=== PATIENT | male | born 1940 | race Caucasian/White ===

== ENCOUNTER 2017-01-28 23:31 | Emergency (ER) | payer MEDICARE, OTHER ==
--- NOTE | 2017-01-28 23:48 | ED Physician Documentation ---
General Adult - HISTORIAN Historian: patient, spouse - HPI Stated Complaint: "can't take full breath" Chief Complaint: General Adult Onset: days ago Timing: other (intermittent) Further Comments: yes (Pt is a 76 yo male who comes to ER for "difficulty taking a full breath." Pt has not had chest pain or nausea. He feels as though he cannot fill his lungs completely. He does not associate this feeling with exertion. Pt denies hx of COPD. He was a heavy smoker at one time, but has not smoked for 30 yrs. Pt denies anxiety. Pt has SpO2=98% RA.) - ROS CONST: no problems EYES/ENT: none CVS/RESP: shortness of breath ("cannot take a full breath") GI/: problems urinating MS/SKIN/LYMPH: none - PAST HX Past History: other (HLD) Allergies/Adverse Reactions: Allergies Allergy/AdvReac Type Severity Reaction Status Date / Time No Known Drug Allergies Allergy Verified 01/28/17 23:55 Home Medications: Ambulatory Orders Medication Instructions Recorded Hydrochlorothiazide 25 mg PO DAILY #30 tablet 01/29/17 - SOCIAL HX Smoking History: quit greater than 1 year - FAMILY HX Family History: No - REVIEWED ASSESSMENTS Nursing Assessment Reviewed: Yes Vitals Reviewed: Yes Progress - Progress Progress: subjective feeling of not being able to take a full breath, without other sx, suggests anxiety. Pt will consider this and discuss with pcp. Pt's bp elevated in ER, BP 177/96 Pt states his sbp on home monitor is often 160 or greater and that he has been discussing bp med with pcp Rx HCTZ 25 mg po qd f/u pcp in one week - EKG/XRAY/CT EKG: NSR (HR=66; LVH) XRAY: chest (no active disease) ED Results Lab/Radiology - Orders Orders: ED Orders Category Date Time Status Continuous EKG monitoring Q30M Care 01/28/17 23:39 Active Continuous Pulse Oximetry Q30M Care 01/28/17 23:39 Active CHEST 1 VIEW [RAD] Stat Exams 01/28/17 23:39 Ordered CBC/PLATELET/DIFF Routine Lab 01/28/17 23:46 Received CKMB Stat Lab 01/28/17 23:46 Received CMP Routine Lab 01/28/17 23:46 Received CREATINE KINASE Routine Lab 01/28/17 23:46 Received TROPONIN I (cTnI) Stat Lab 01/28/17 23:46 Received Oxygen Daily Oxygen 01/28/17 23:45 Ordered EKG WITH COMPARISON Stat Ther 01/28/17 23:39 Ordered General Adult Physical Exam - PHYSICAL EXAM GENERAL APPEARANCE: mild distress EENT: pharynx normal NECK: normal inspection, supple RESPIRATORY: no resp distress, chest non-tender, breath sounds normal CVS: reg rate & rhythm, heart sounds normal ABDOMEN: soft, normal bowel sounds BACK: normal inspection, no CVA tenderness SKIN: warm/dry, normal color EXTREMITIES: non-tender, normal range of motion, no evidence of injury NEURO: oriented X3, motor nml, sensation nml Discharge Clincal Impression: elevated blood pressure, sob ? anxiety Prescriptions: Hydrochlorothiazide 25 mg PO DAILY #30 tablet Referrals: Ata Ricks MD [Primary Care Provider] - 2 Days Home Medications: Ambulatory Orders Hydrochlorothiazide 25 mg PO DAILY #30 tablet 01/29/17 Condition: Stable Disposition: 01 HOME, SELF-CARE Decision to Admit: NO Decision Time: 00:56
[2017-01-28 23:52] LABS: BASOPHILS % 0.7 (0.0-1.5); EOSINOPHILS % 6.3 % (0.0-6.8); MEAN CORPUSCULAR HEMOGLOBIN 30.5 pg (28.0-34.0); MEAN CORPUSCULAR VOLUME 94.1 fl (80.0-100.0); MONOCYTES % 6.9 % (0.0-11.0); NEUTROPHILS # 4.6 # k/uL (1.4-7.7)
[2017-01-29 00:07] LABS: eGFR (African) 54; eGFR (Non-African) 45
[2017-01-29] MEDS ORDERED: HYDROCHLOROTHIAZIDE 25 MG TABLET PO ONE (01:03)
[2017-01-29] MEDS: HYDROCHLOROTHIAZIDE 25 MG TABLET PO SCH (01:06)
[2017-01-29 01:42] VITALS: BP 177/96
--- NOTE | 2017-01-29 06:01 | Diagnostic Imaging Report ---
MYRON HARDIN [facility] [address] [facility].[address] [address] Report Submission Date: Jan 29, 2017 12:13:06 AM CDT Patient Study Name: MYRON FINN Date: Jan 28, 2017 11:52:28 PM CDT Modality Type: CR Gender: M Description: CHEST : 39 Institution: [facility] Physician: MYRON HARDIN Chest - one-view Clinical history: Shortness of breath. Findings: Examination of the chest single portable AP view on 01/28/2017 2352 hours with no prior film for comparison demonstrates the lungs to be hypoventilated but clear. Cardiac silhouette is prominent and the aorta is atherosclerotic. The bony thorax is intact. Impression: 1. Aortic atherosclerosis and left ventricular prominence. 2. No active disease. Electronically signed on Jan 29, 2017 12:13:06 AM CDT by: Manjinder MOSQUEDA
== END 2017-01-29 01:10 | disposition home or self-care (01) ==
LOC: ED 23:31
DX: R06.02 Shortness of breath (principal)
CPT/HCPCS: 71010; 80053; 82550; 82553; 84484; 85025; 99283; S1016

== ENCOUNTER 2017-02-19 11:07 | Outpatient (CLI) | payer MEDICARE, OTHER | END 2017-02-19 11:10 | LOC: RT 11:07 | PROVIDERS: ATTEND Family Medicine | DX: R06.02 Shortness of breath (principal); F17.210 Nicotine dependence, cigarettes, uncomplicated | CPT/HCPCS: 94060 ==

== ENCOUNTER 2017-12-09 15:19 | Observation (INO) | payer MEDICARE, OTHER ==
[2017-12-09] MEDS ORDERED: ONDANSETRON HCL/PF 4 MG/ 2ML VIAL ONE (16:04)
[2017-12-09] MEDS ORDERED: 0.9 % SODIUM CHLORIDE 500 ML IV ONE (16:04)
[2017-12-09] MEDS ORDERED: NITROFURANTOIN 100 MG CAPSULE PO ONE (19:55)
--- NOTE | 2017-12-12 19:17 | Diagnostic Imaging Report ---
[facility] [address] [facility].[address] [address] Report Submission Date: Dec 11, 2017 6:08:02 PM CDT Patient Study Name: MYRON FINN Date: Dec 09, 2017 4:13:22 PM CDT Modality Type: DX Gender: M Description: CHEST : 39 Institution: [facility] Physician: KAMLESH IRWIN Examination: Portable chest History: Evaluate lungs. SYNCOPAL EPISODE (Hx) Comparison exam: None available for direct review Findings: Single view of the chest demonstrates a normal cardiac and mediastinal silhouette. Elevate right hemidiaphragm. Tortuous aorta. Lung perdomo without focal infiltrate. No blunting of the costophrenic margins. Left Cardiac pacemaker. Osseous structures are appropriate for age. Impression: Chronic parenchymal changes. No acute pulmonary process. Electronically signed on Dec 11, 2017 6:08:02 PM CDT by: Chaka MOSQUEDA
[2017-12-13 11:35] LABS: eGFR (African) 26; eGFR (Non-African) 22
[2017-12-13 11:37] LABS: eGFR (African) 28; eGFR (Non-African) 23
[2017-12-13 11:41] LABS: MEAN CORPUSCULAR VOLUME 94.3 fl (80.0-100.0); eGFR (African) 24; eGFR (Non-African) 20
[2017-12-13 11:42] LABS: BASOPHILS % 0.6 (0.0-1.5); EOSINOPHILS % 3.4 % (0.0-6.8); MEAN CORPUSCULAR HEMOGLOBIN 30.3 pg (28.0-34.0); MONOCYTES % 4.9 % (0.0-11.0); NEUTROPHILS # 5.8 # k/uL (1.4-7.7)
[2017-12-13 12:17] LABS: APPEARANCE,URINE CLEAR (CLEAR); COLOR,URINE YELLOW (YELLOW); OCCULT BLOOD,URINE 2+ (NEGATIVE); PH URINE 5.5 (5.0 - 8.0); UROBILINOGEN URINE 0.2 Eu (0.2-1.0)
[2017-12-13 12:19] LABS: eGFR (African) 31; eGFR (Non-African) 26
--- NOTE | 2017-12-13 13:28 | Discharge Summary ---
DATE OF ADMISSION: December 09, 2017 DATE OF DISCHARGE: December 10, 2017 IDENTIFICATION: Patient is a 77-year-old white male from [place], [place]. ATTENDING PHYSICIAN: Dr. Ata Ricks. LEVEL OF CARE: Observation. CHIEF COMPLAINT: Syncopal episode. PRESENTING ILLNESS: Patient states that he has not been feeling well over the last 3 to 4 days. Patient has been having some orthostatic hypotension-type symptoms of feeling lightheaded and dizzy when he changes positions, especially from getting up from a chair. Patient has had some diarrhea for 1 day. Patient states that this did improve. Patient, however, has not been eating and drinking well because he is afraid he might exacerbate his diarrhea. Patient has been outside working in the heat, although he states he has been drinking some fluids. On the day of admission, patient was getting ready to put gas in his car when he blacked out and fell down. Patient was subsequently brought to the emergency room. At home, prior to him being transported to the emergency room , patient's systolic blood pressure was in the 80s. Patient was found to have a urinary tract infection and was felt to be dehydrated. Patient's BUN and creatinine were elevated above baseline. Patient was started on IV fluids and antibiotic therapy of Macrodantin. At the time of admission, patient's BUN was 41 and a creatinine of 3.2. The rest of the patient's electrolytes were within normal limits. BNP was 194. Troponin was less than 0.03. Patient was admitted for IV fluids and hydration. On the morning following his admission, patient's creatinine had dropped down to 2.6. Baseline is close to 2.0. BUN had improved to 36. It was felt that the patient was stable enough at the time of discharge that he could maintain his hydration adequately at home and could be followed up on an outpatient basis. Patient subsequently was discharged in stable condition. ADMISSION DIAGNOSES: 1. Dehydration. 2. Acute renal failure. 3. Orthostatic hypotension. 4. Urinary tract infection. DISCHARGE DIAGNOSES: 1. Dehydration. 2. Orthostatic hypotension with a syncopal episode. 3. Acute renal failure felt to be prerenal. 4. Urinary tract infection. 5. History of hypertension. 6. Systolic congestive heart failure. 7. History of dilated cardiomyopathy. 8. Sick sinus syndrome. 9. Left bundle branch block on EKG. DISCHARGE MEDICATIONS: 1. Tamsulosin 0.4 mg 2 tablets daily. 2. Entresto 49-51 mg 1 p.o. b.i.d. 3. Carvedilol 12.5 mg p.o. b.i.d. 4. Aspirin 81 mg daily. 5. Aldactone 25 mg p.o. daily. 6. Cipro 250 mg 1 p.o. b.i.d. for 4 days. DISCHARGE PLANNING: DIET: No added salt. ACTIVITY: Up ad kofi. CODE STATUS: FULL CODE. FOLLOW UP: Patient will follow up with Dr. Moreland as scheduled on December 28. DISCHARGE INSTRUCTIONS: Patient's will call my clinic in 1 week to let me know how he is doing and will follow up in 4 to 6 weeks. PANDA
--- NOTE | 2017-12-16 21:21 | Discharge Summary ---
Discharge Summary - Discharge Sumary History of Present Illness: 77-year-old white male who states that over the last several days prior to admission he was having some lightheadedness associated with orthostatic changes. Patient had not been feeling well with having some nausea but not eating and drinking well. Patient stated he also has been working outside and was having decrease urinary output with increasing concentration of the urine. On the day of admission patient was getting ready to His car up when he had a syncopal episode after he got out of his vehicle. Patient did not have any injuries following. Patient subsequently went home and had further orthostatic hypotensive symptoms. Patient was subsequently brought to the emergency room for evaluation. It was felt that the patient was dehydrated and was subsequently admitted to the hospital for further care and evaluation. Condition at Discharge: Stable Home Medications: Ambulatory Orders Medication Instructions Recorded Hydrochlorothiazide 25 mg PO DAILY #30 tablet 01/29/17 Aspirin 81 mg PO DAILY u2 10/03/17 Carvedilol [Coreg] 12.5 mg PO BID u2 10/03/17 Spironolactone 25 mg PO DAILY u2 10/03/17 Consultations this Visit: None Procedures this Visit: None Allergies/Adverse Reactions: Allergies Allergy/AdvReac Type Severity Reaction Status Date / Time No Known Drug Allergies Allergy Verified 01/28/17 23:55 Discharge Summary: Patient was started on slow IV rehydration because of his history of cardiomyopathy with congestive heart failure. 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 Patient did not have any further syncopal episodes. Patient did have some mild orthostatic hypotension on admission but this did resolve with the IV fluids. At the time to discharge it was felt that the patient was stable enough that he could be followed up on an outpatient basis and patient was subsequently discharged in stable condition. Patient EKG remain stable in a normal paced rhythm. Patient troponin was negative.
== END 2017-12-10 16:30 | disposition home or self-care (01) ==
LOC: ED 15:19 → SOUTH 20:15 → ED 12-10 22:53 → UNDOADMIN 12-10 22:57 → SOUTH 12-10 22:57
PROVIDERS: ADMIT Family Medicine; ATTEND Family Medicine
DX: E86.0 Dehydration (principal); I95.1 Orthostatic hypotension; N17.9 Acute kidney failure, unspecified; N39.0 Urinary tract infection, site not specified
CPT/HCPCS: 36415; 71045; 80053; 81002; 83880; 84484; 85025; 85379; 93005; 96360; 96374; 99284; G0378; J2405; J7060; 99217; G0379; S1016

== ENCOUNTER 2018-04-01 09:46 | Observation (INO) | payer MEDICARE, OTHER ==
--- NOTE | 2018-04-01 11:01 | Diagnostic Imaging Report ---
BEATRICE FISCHER [facility] [address] [facility].[address] [address] Report Submission Date: Apr 01, 2018 10:39:45 AM CDT Patient Study Name: MYRON FINN Date: Apr 01, 2018 10:09:17 AM CDT Modality Type: DX Gender: M Description: CHEST : 39 Institution: [facility] Physician: BEATRICE FISCHER Examination: PA and lateral chest. History: Evaluate lung perdomo. SYNCOPE SINCE THIS AM PT STATES HE HAD A PACEMAKER INSTALLED 10 MONTHS AGO (Hx) Comparison exam: None provided. Findings: PA and lateral views of the chest demonstrates a normal cardiac and mediastinal silhouette. Minimally tortuous aorta. No focal infiltrate. No blunting of the costophrenic margins. Left-sided cardiac pacemaker. Osseous structures are appropriate for age. Impression: No acute pulmonary process. Electronically signed on Apr 01, 2018 10:39:45 AM CDT by: Chaka MOSQUEDA
--- NOTE | 2018-04-01 11:04 | ED Physician Documentation ---
General Adult - HISTORIAN Historian: patient, spouse - HPI Stated Complaint: Dizziness Chief Complaint: Near Syncope Additional Information: Thirty minutes prior to arrival in ER. he got up from stool at [facility] to go to cou. Became quite dizzy and had to sit back down. Diaphoretic. This had happened once before and he had been hospitalized with dehydration. He has a pacemaker/defibrillator since . He admits joselyn a week ago in the middle of the night, he put his left foot on the floor to go to the bathroom. He could not control the right leg. This resoved at some point, so he did not seek medical attention. Says he feels fine on arrival in ER. However, he became quite dizzy while getting to to go to x ray x2. Orthostatics in ER w/o significant change. His appetite and activity have been decreased for months, but more marked the last week. No other modifying factors or associated events. - ROS CONST: denies: fever - PAST HX Past History: hypertension, other (HLD) Surgeries/Procedures: other (pacemaker/defibrillator) Allergies/Adverse Reactions: Allergies Allergy/AdvReac Type Severity Reaction Status Date / Time No Known Drug Allergies Allergy Verified 04/01/18 10:31 Home Medications: Ambulatory Orders Medication Instructions Recorded Aspirin 81 mg PO DAILY u2 10/03/17 Carvedilol [Coreg] 12.5 mg PO BID u2 10/03/17 Spironolactone 25 mg PO DAILY u2 10/03/17 Sacubitril/Valsartan [Entresto 49 1 tab PO DAILY 04/01/18 mg-51 mg Tablet] - SOCIAL HX Smoking History: quit greater than 1 year - FAMILY HX Family History: No - VITAL SIGNS Vital Signs: Vital Signs Temp Pulse Resp BP Pulse Ox 98.0 F 61 18 129/71 96 04/01/18 10:14 04/01/18 10:14 04/01/18 10:14 04/01/18 10:14 04/01/18 10:14 - REVIEWED ASSESSMENTS Nursing Assessment Reviewed: Yes Vitals Reviewed: Yes Progress - Progress Progress: Report Submission Date: Apr 01, 2018 10:39:45 AM CDT Patient Study Name: MYRON FINN Date: Apr 01, 2018 10:09:17 AM CDT Modality Type: DX Gender: M Description: CHEST : 39 Institution: [facility] Physician: BEATRICE FISCHER [facility] Examination: PA and lateral chest. History: Evaluate lung perdomo. SYNCOPE SINCE THIS AM PT STATES HE HAD A PACEMAKER INSTALLED 10 MONTHS AGO (Hx) Comparison exam: None provided. Findings: PA and lateral views of the chest demonstrates a normal cardiac and mediastinal silhouette. Minimally tortuous aorta. No focal infiltrate. No blunting of the costophrenic margins. Left-sided cardiac pacemaker. Osseous structures are appropriate for age. Impression: No acute pulmonary process. Electronically signed on Apr 01, 2018 10:39:45 AM CDT by: Chaka Freire Report Submission Date: Apr 01, 2018 11:13:16 AM CDT Patient Study Name: MYRON FINN Date: Apr 01, 2018 10:44:11 AM CDT Modality Type: CT\SR Gender: M Description: CT BRAIN W/O CONTRAST : 39 Institution: [facility] Physician: BEATRICE FISCHER JESSICA Examination: CT head without contrast History: NEAR SYCOPE - LOSS OF LEG CONTROL - RESOLVED, 1 WK (Hx) Comparison exam: None available Technique: Noncontrast head CT protocol. Findings: Ventricles and sulci are prominent, though consistent for patient age. Cerebrocerebellar parenchyma demonstrates periventricular low attenuation consistent with small vessel disease. No evidence for parenchymal hemorrhage. No evidence for mass or mass effect. No midline shift. No extra axial fluid collections. Partial visualization of the paranasal sinuses, mastoid air cells, orbits, skull and scalp without gross irregularity. Impression: Age related changes. No acute parenchymal process. No hemorrhage. Electronically signed on Apr 01, 2018 11:13:16 AM CDT by: Chaka Freire 1320, Troponin I test not available in house today. First Troponin I drawn at 1010, appeared in lab results at 1320. Second Troponin I, appeared in lab results at 1354. 1400, discussed with Dr. Ricks. Will admit pt observation to Dr. Ricks. ED Results Lab/Radiology - Lab Results Lab Results: Lab Results 04/01/18 10:10 Sodium 138 mmol/L mmol/L (136-145) Potassium 4.3 mmol/L mmol/L (3.5-5.1) Chloride 106 mmol/L mmol/L (98-107) Carbon Dioxide 24 mmol/L mmol/L (22-30) BUN 26 mg/dL H mg/dL (9-20) Creatinine 2.00 mg/dL H mg/dL (0.66-1.25) Estimated Creat Clear 42 Est GFR ( Amer) 42 L (60 - ) Est GFR (Non-Af Amer) 35 L (60 - ) Glucose 104 mg/dL mg/dL (74-106) Calcium 8.8 mg/dL mg/dL (8.4-10.2) Total Bilirubin 0.5 mg/dL mg/dL (0.2-1.3) AST 12 U/L L U/L (15-46) ALT 20 U/L U/L (13-69) Alkaline Phosphatase 65 U/L U/L (38-126) Total Protein 6.9 g/dL g/dL (6.3-8.2) Albumin 3.7 g/dL g/dL (3.5-5.0) - Orders Orders: ED Orders Category Date Time Status Continuous EKG monitoring Q1H Care 04/01/18 10:06 Active Orthostatics 1T Care 04/01/18 10:[address] IV Lock 1T Care 04/01/18 10:06 Active CHEST 2VIEW [RAD] Stat Exams 04/01/[address] BRAIN W/O CONTRAST Stat Exams 04/01/18 Ordered BNP [NT-proBNP] Stat Lab 04/01/18 10:10 Received CBC REF Routine Lab 04/01/18 10:10 Received CMP Routine Lab 04/01/18 10:10 Completed TROPONIN T (Yash) Stat Lab 04/01/18 10:10 Received URINALYSIS Routine Lab 04/01/18 Ordered EKG WITH COMPARISON Stat Ther 04/01/18 Ordered General Adult Physical Exam - PHYSICAL EXAM GENERAL APPEARANCE: mild distress (concerned) EENT: eye inspection normal, pharynx normal, CROW (EOMI), dry mucous membranes NECK: normal inspection, supple RESPIRATORY: no resp distress, breath sounds normal CVS: reg rate & rhythm, heart sounds normal, no murmur ABDOMEN: soft, normal bowel sounds, no abdominal bruit BACK: normal inspection, no CVA tenderness, other (no vertebral tenderness) SKIN: warm/dry, normal color EXTREMITIES: non-tender, normal range of motion, no evidence of injury NEURO: CN's nml as tested, motor nml, sensation nml, cognition normal, other ( reflexes 2+ throughout. Can dorsiflex and plantar flex toes against resistance.) Discharge Clincal Impression: Near syncope Referrals: Ata Ricks MD [Primary Care Provider] - 2 Days Condition: Fair Disposition: ADMITTED INPATIENT Decision to Admit: NO Decision Time: 14:00
[2018-04-01 11:22] LABS: BASO % 0.7 % (0.0-1.5); EOS % 6.5 % (0.0-6.8); LYMPH ABS # 2.14 thou/uL (0.60-4.00); MCH. 28.9 pg (28.0-34.0); MCV 90.9 fL (80.0-100.0); MONOCYTE % 6.2 % (0.0-11.0); MONOCYTE ABS # 0.51 thou/uL (0.00-0.90); PLATELET COUNT 251 thou/uL (130-400)
--- NOTE | 2018-04-01 11:24 | Diagnostic Imaging Report ---
BEATRICE FISCHER [facility] [address] [facility] [address] [place] [address]. [id number] Report Submission Date: Apr 01, 2018 11:13:16 AM CDT Patient Study Name: MYRON FINN Date: Apr 01, 2018 10:44:11 AM CDT Modality Type: CT\SR Gender: M Description: CT BRAIN W/O CONTRAST : 38 Institution: [facility] Physician: BEATRICE FISCHER Examination: CT head without contrast History: NEAR SYCOPE - LOSS OF LEG CONTROL - RESOLVED, 1 WK (Hx) Comparison exam: None available Technique: Noncontrast head CT protocol. Findings: Ventricles and sulci are prominent, though consistent for patient age. Cerebrocerebellar parenchyma demonstrates periventricular low attenuation consistent with small vessel disease. No evidence for parenchymal hemorrhage. No evidence for mass or mass effect. No midline shift. No extra axial fluid collections. Partial visualization of the paranasal sinuses, mastoid air cells, orbits, skull and scalp without gross irregularity. Impression: Age related changes. No acute parenchymal process. No hemorrhage. Electronically signed on Apr 01, 2018 11:13:16 AM CDT by: Chaka MOSQUEDA
[2018-04-01 12:47] LABS: TROPONIN T <0.010 ng/mL (<0.010)
[2018-04-01 13:51] LABS: TROPONIN T <0.010 ng/mL (<0.010)
[2018-04-01 18:13] VITALS: BMI 26.7
[2018-04-01] MEDS: CARVEDILOL 12.5 MG TABLET PO SCH (20:48)
[2018-04-01] MEDS: SALINE FLUSH 10 ML DISP.SYRIN IV SCH (20:48)
[2018-04-01] MEDS ORDERED: SPIRONOLACTONE 25 MG TABLET PO ONE (23:02)
[2018-04-01] MEDS ORDERED: ASPIRIN 81 MG CHEW TAB ONE (23:02)
[2018-04-01] MEDS ORDERED: TAMSULOSIN HCL 0.4 MG CAP.ER.24H PO ONE (23:03)
[2018-04-02] MEDS: SPIRONOLACTONE 25 MG TABLET PO SCH ×2 (08:53→08:57)
[2018-04-02] MEDS: CARVEDILOL 12.5 MG TABLET PO SCH ×2 (08:53→08:56)
[2018-04-02] MEDS: SALINE FLUSH 10 ML DISP.SYRIN IV SCH (08:53)
[2018-04-02] MEDS ORDERED: SACUBITRIL PO SCH (09:00)
[2018-04-02] MEDS ORDERED: TAMSULOSIN HCL 0.4 MG CAP.ER.24H PO SCH (09:00)
[2018-04-02] MEDS ORDERED: VALSARTAN PO SCH (09:00)
[2018-04-02] MEDS ORDERED: ASPIRIN 81 MG CHEW TAB PO SCH (09:00)
--- NOTE | 2018-04-02 09:22 | Discharge Summary ---
Discharge Summary - Discharge Sumary History of Present Illness: Thirty minutes prior to arrival in ER. he got up from stool at [facility] to go to cou. Became quite dizzy and had to sit back down. Diaphoretic. This had happened once before and he had been hospitalized with dehydration. He has a pacemaker/defibrillator since . He admits joselyn a week ago in the middle of the night, he put his left foot on the floor to go to the bathroom. He could not control the right leg. This resoved at some point, so he did not seek medical attention. Says he feels fine on arrival in ER. However, he became quite dizzy while getting to to go to x ray x2. Orthostatics in ER w/o significant change. His appetite and activity have been decreased for months, but more marked the last week. No other modifying factors or associated events. Condition at Discharge: Stable Home Medications: Ambulatory Orders Medication Instructions Recorded Aspirin 81 mg PO DAILY u2 10/03/17 Carvedilol [Coreg] 12.5 mg PO BID u2 10/03/17 Spironolactone 25 mg PO DAILY u2 10/03/17 Sacubitril/Valsartan [Entresto 49 1 tab PO DAILY 04/01/18 mg-51 mg Tablet] Consultations this Visit: None Procedures this Visit: None Allergies/Adverse Reactions: Allergies Allergy/AdvReac Type Severity Reaction Status Date / Time No Known Drug Allergies Allergy Verified 04/15/18 09:19 Discharge Summary: On admission patient was placed on a heart monitor and remained in a normal sinus rhythm without any tachy bradycardia noted. Patient did not have any further syncopal or new syncopal episode. Patient neurological status remains stable. Patient was subsequently discharged home in stable condition. - Final Diagnosis (1) Dizziness Problems: Patient with is vied to make sure that it stays well hydrated. 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 Patient was advised to try to check his blood pressure and heart rate with episodes.
[2018-04-02 09:25] VITALS: BP 148/80
== END 2018-04-02 10:20 | disposition home or self-care (01) ==
LOC: ED 09:46 → SOUTH 14:06
PROVIDERS: ADMIT Family Medicine; ATTEND Family Medicine
DX: R55 Syncope and collapse (principal); R61 Generalized hyperhidrosis; I10 Essential (primary) hypertension; E78.5 Hyperlipidemia, unspecified
CPT/HCPCS: 70450; 71046; 80053; 83880; 84484; 85025; 93005; G0378; 99217; S1016

== ENCOUNTER 2018-04-04 14:19 | Outpatient (CLI) | payer MEDICARE, OTHER | END 2018-04-04 14:20 | LOC: RT 14:19 | PROVIDERS: ATTEND Family Medicine | DX: Z53.9 Procedure and treatment not carried out, unspecified reason (principal) ==

== ENCOUNTER 2018-04-15 09:07 | Emergency (ER) | payer MEDICARE, OTHER ==
[2018-04-15 09:30] LABS: BASOPHILS % 0.3 (0.0-1.5); EOSINOPHILS % 5.2 % (0.0-6.8); MONOCYTES % 10.5 % (0.0-11.0); NEUTROPHILS # 5.1 # k/uL (1.4-7.7)
--- NOTE | 2018-04-15 10:21 | ED Physician Documentation ---
Neuro Symptoms - HISTORIAN Historian: patient, spouse - HPI Stated Complaint: Right sided flacid Chief Complaint: Neurological Deficits Onset: hours ([id number]) Last known Well Date: 04/15/18 Last Known Well Time: 07:00 Last known Well Code/Unknown Code: Known Further Comments: yes (78 year old male patient brought in POV from home. reports patient refused to call ambulance, will not let her take him to [place]. Patient reports episode from [id number] where he could not move his right arm or leg "normally". Patient reports gross motor movement of right arm, c/o numbness during episode; states he could not move his right leg at all for 1 hour. Symptoms have spontaneously improved. 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 ) Altered Sensation: RUE (numbness) Vision Problems: No Impaired Speech/ Swallowing: No Decreased Ability: none Cognition is Usually: alert, oriented x3 Gait is Usually: walks w/o assistance Associated Symptoms: none - ROS MENTAL STATUS: none CVS/Resp Upper Extremity Problem: none GI/ DYSPNEA: none MS/SKIN/LYMPH: none Neuro/Psych: none - PAST HX Past History: denies: none Other History: hyperlipidemia, hypertension Surgeries/Procedures: other (internal defib) Allergies/Adverse Reactions: Allergies Allergy/AdvReac Type Severity Reaction Status Date / Time No Known Drug Allergies Allergy Verified 04/15/18 09:19 Home Medications: Ambulatory Orders Medication Instructions Recorded Aspirin 81 mg PO DAILY u2 10/03/17 Carvedilol [Coreg] 12.5 mg PO BID u2 10/03/17 Spironolactone 25 mg PO DAILY u2 10/03/17 Sacubitril/Valsartan [Entresto 49 1 tab PO DAILY 04/01/18 mg-51 mg Tablet] - FAMILY HX Family History: denies: none - SOCIAL HX Smoking History: non-smoker - VITAL SIGNS Vital Signs: Vital Signs Temp Pulse Resp BP Pulse Ox 97.9 F 64 20 127/71 97 04/15/18 10:47 04/15/18 10:47 04/15/18 10:47 04/15/18 10:47 04/15/18 10:47 - REVIEWED ASSESSMENTS Nursing Assessment Reviewed: Yes Vitals Reviewed: Yes Progress - Progress Progress: 04/01/2018 Patient was seen in ER with similar complaints which had completely resolved. Patient did not see PCP in office after ER visit, has not seen neurology as recommended. states they were unable to get an appointment until June. Discussed risk of stroke with patient related to repeated episodes of similar symptoms. Explained patient would need to transfer for neurology consult today. prefers [facility] 0950 Call from radiology - acute infarct on CT. Call to [facility] - case discussed with Doyle; house visitor. [phone] Call from [place] - patient accepted by Dr Cruz. Family updated on CT and transfer plan; patient and family agree with transfer. ED Results Lab/Radiology - Lab Results Lab Results: Lab Results 04/15/18 04/15/18 04/15/18 09:50 09:16 09:16 WBC RBC Hgb Hct MCV MCH MCHC RDW Plt Count Neut % (Auto) Lymph % (Auto) Merrick % (Auto) Eos % (Auto) Baso % (Auto) Neut # (Auto) Lymph # (Auto) Merrick # (Auto) Eos # (Auto) Baso # (Auto) PT 10.9 Seconds Seconds (9.4-11.6) INR 1.04 (0.9-1.2) APTT 27.2 Seconds Seconds (24.5-32.8) Sodium 142 mmol/L mmol/L (136-145) Potassium 4.3 mmol/L mmol/L (3.5-5.1) Chloride 108 mmol/L H mmol/L (98-107) Carbon Dioxide 24 mmol/L mmol/L (22-30) BUN 36 mg/dL H mg/dL (9-20) Creatinine 2.30 mg/dL H mg/dL (0.66-1.25) Estimated Creat Clear 36 Est GFR ( Amer) 35 L (60 - ) Est GFR (Non-Af Amer) 29 L (60 - ) Glucose 96 mg/dL mg/dL (74-106) Calcium 8.8 mg/dL mg/dL (8.4-10.2) Total Bilirubin 0.5 mg/dL mg/dL (0.2-1.3) AST 18 U/L U/L (15-46) ALT 24 U/L U/L (13-69) Alkaline Phosphatase 63 U/L U/L (38-126) Troponin I < 0.03 ng/mL L ng/mL (0.03-0.06) Total Protein 7.2 g/dL g/dL (6.3-8.2) Albumin 3.9 g/dL g/dL (3.5-5.0) 04/15/18 09:15 WBC 8.30 K/ul K/ul (4.00-12.00) RBC 4.41 M/ul M/ul (3.90-5.20) Hgb 13.2 g/dL g/dL (12.0-18.0) Hct 40.0 % % (37.0-53.0) MCV 91.0 fl fl (80.0-100.0) MCH 30.0 pg pg (28.0-34.0) MCHC 33.1 g/dL g/dL (30.0-36.0) RDW 13.3 % % (11.3-14.3) Plt Count 220 K/mm3 K/mm3 (130-400) Neut % (Auto) 60.6 % % (39.0-79.0) Lymph % (Auto) 23.4 % % (16.0-50.0) Merrick % (Auto) 10.5 % % (0.0-11.0) Eos % (Auto) 5.2 % % (0.0-6.8) Baso % (Auto) 0.3 (0.0-1.5) Neut # (Auto) 5.1 # k/uL # k/uL (1.4-7.7) Lymph # (Auto) 2.0 # k/uL # k/uL (0.6-4.0) Merrick # (Auto) 0.9 # k/uL # k/uL (0.0-0.9) Eos # (Auto) 0.4 # k/uL # k/uL (0.0-0.6) Baso # (Auto) 0.0 # k/uL # k/uL (0.0-0.5) PT INR APTT Sodium Potassium Chloride Carbon Dioxide BUN Creatinine Estimated Creat Clear Est GFR ( Amer) Est GFR (Non-Af Amer) Glucose Calcium Total Bilirubin AST ALT Alkaline Phosphatase Troponin I Total Protein Albumin - Radiology Radiology Impressions: Head CT without contrast History: Stroke protocol Axial images were obtained from the skullbase to the vertex without IV contrast. Findings: The ventricular system, basilar cisterns and cortical sulci are generally prominent compatible with age-related cortical volume loss. Patchy areas of periventricular to subcortical white matter lucency are present bilaterally consistent with [id number] small vessel ischemic disease. There is no positive mass effect or intra/extra-axial hemorrhage. However, at the mid left cerebellum, there is a focal hypodense area measuring 2 x 2 cm in greatest dimension, most consistent with an acute area of infarct. Impression: Age-related cortical volume loss with [id number] small vessel ischemic disease. No intracranial hemorrhage. 2 x 2 cm hypodense rounded area at the mid left cerebellum, likely an acute focus of infarct. Consider follow up MRI with regard to this finding. These findings were discussed with the patient's nurse in the [facility] emergency room on April 15, 2018 at 9:35 a.m.. Electronically signed on Apr 15, 2018 9:42:39 AM CDT by: Claudette Macias - Orders Orders: ED Orders Category Date Time Status Continuous EKG monitoring Q30M Care 04/15/18 09:16 Active Continuous Pulse Oximetry Q30M Care 04/15/18 09:[address] IV Lock 1T Care 04/15/18 09:[address] BRAIN W/O CONTRAST Stat Exams 04/15/18 09:18 Taken CBC/PLATELET/DIFF Stat Lab 04/15/18 09:15 Completed CMP Stat Lab 04/15/18 09:16 Completed PT-INR Stat Lab 04/15/18 09:50 Completed PTT Stat Lab 04/15/18 09:50 Completed TROPONIN I (cTnI) Stat Lab 04/15/18 09:16 Completed UA W/MICRO IF INDICATED Stat Lab 04/15/18 09:16 Ordered EKG WITH COMPARISON Stat Ther 04/15/18 09:16 Completed Neuro Symptoms Physical Exam - Physical Exam General Appearance: no acute distress, alert HEENT: no apparent trauma, EOM's intact, PERRL, ENT inspection nml, pharynx nml, airway intact, oral exam nml Neuro/Psych: alert, oriented x3, mood/affect nml, other (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; NIH 1 - due to numbness of right arm) Cerebellar: nml as tested Pheripheral Exam: motor nml, sensation nml, reflexes nml Neck: normal inspection, thyroid normal Respiratory: no resp distress, chest non-tender, breath sounds normal CVS: reg rate & rhythm, heart sounds normal, equal pulses, no murmur, no gallop, PMI nml, no JVD, no friction rub, 24 Abdomen: non-tender, no distention, no organomegaly Skin: color nml, no rash, nml palp., dry Extremities: non-tender, normal range of motion, no evidence of injury, 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
[2018-04-15 10:50] VITALS: BP 127/71
--- NOTE | 2018-04-15 14:15 | Diagnostic Imaging Report ---
MENDOZA GLOVER (WRAP CHECKER) - ER [facility] [address] [id number] Report Submission Date: Apr 15, 2018 9:42:39 AM CDT Patient Study Name: MYRON FINN Date: Apr 15, 2018 9:23:18 AM CDT Modality Type: CT\SR Gender: M Description: CT BRAIN W/O CONTRAST : 38 Institution: [facility] Physician: MENDOZA GLOVER (GUS) - ER Head CT without contrast History: Stroke protocol Axial images were obtained from the skullbase to the vertex without IV contrast. Findings: The ventricular system, basilar cisterns and cortical sulci are generally prominent compatible with age-related cortical volume loss. Patchy areas of periventricular to subcortical white matter lucency are present bilaterally consistent with [id number]-[id number] small vessel ischemic disease. There is no positive mass effect or intra/extra-axial hemorrhage. However, at the mid left cerebellum, there is a focal hypodense area measuring 2 x 2 cm in greatest dimension, most consistent with an acute area of infarct. Impression: Age-related cortical volume loss with feid-yh-rlzncxin small vessel ischemic disease. No intracranial hemorrhage. 2 x 2 cm hypodense rounded area at the mid left cerebellum, likely an acute focus of infarct. Consider follow up MRI with regard to this finding. These findings were discussed with the patient's nurse in the [facility] emergency room on April 15, 2018 at 9:35 a.m.. Electronically signed on Apr 15, 2018 9:42:39 AM CDT by: Claudette MOSQUEDA
== END 2018-04-15 10:20 | disposition short-term general hospital (02) ==
LOC: ED 09:07
DX: I63.9 Cerebral infarction, unspecified (principal); R20.2 Paresthesia of skin; R53.1 Weakness
CPT/HCPCS: 70450; 80053; 84484; 85025; 85610; 85730; 99285; S1016

== ENCOUNTER 2018-10-14 13:33 | Outpatient (CLI) | payer OTHER ==
[2018-10-14 14:32] LABS: MEAN CORPUSCULAR HEMOGLOBIN 29.8 pg (28.0-34.0)
[2018-10-14 14:34] LABS: BASOPHILS % 1 % (0-2); EOSINOPHILS % 5 % (0-7); MONOCYTES % 6 % (0-11); SEGMENTED NEUTROPHILS % 61 % (39-79)
[2018-10-14 14:35] LABS: eGFR (Non-African) 26
--- NOTE | 2018-10-14 15:07 | Diagnostic Imaging Report ---
BREONNA BROOKE [facility] [address] [facility].[address] [address] Report Submission Date: Oct 14, 2018 2:24:42 PM CDT Patient Study Name: MYRON FINN Date: Oct 14, 2018 1:51:07 PM CDT Modality Type: DX Gender: M Description: CHEST 2VIEW : 38 Institution: [facility] Physician: BREONNA BROOKE Examination: PA and lateral chest. History: Evaluate lung perdomo. Comparison exam: None available for direct review. Findings: PA and lateral views of the chest demonstrates a normal cardiac and mediastinal silhouette. Mildly tortuous aorta. No focal infiltrate. No blunting of the costophrenic margins. Left-sided cardiac pacemaker. Osseous structures are appropriate for age. Impression: No acute appearing pulmonary process. Electronically signed on Oct 14, 2018 2:24:42 PM CDT by: Chaka MOSQUEDA
== END 2018-10-14 13:35 ==
LOC: LAB 13:33
PROVIDERS: ATTEND Family Medicine
DX: R53.82 Chronic fatigue, unspecified (principal)
CPT/HCPCS: 36415; 71046; 80053; 84439; 84443; 84481; 85025

== ENCOUNTER 2018-10-23 14:17 | Outpatient (CLI) | payer OTHER ==
[2018-10-23 14:53] LABS: APPEARANCE,URINE CLOUDY (CLEAR); COLOR,URINE YELLOW (YELLOW); OCCULT BLOOD,URINE 2+ (NEGATIVE); PH URINE 5.5 (5.0 - 8.0); UROBILINOGEN URINE 0.2 Eu (0.2-1.0)
== END 2018-10-23 14:19 ==
LOC: LAB 14:17
PROVIDERS: ATTEND Family Medicine
DX: R53.82 Chronic fatigue, unspecified (principal); R82.79 Other abnormal findings on microbiological examination of urine
CPT/HCPCS: 81002; 87086